=== PATIENT | female | born 1940 | race Caucasian/White ===

== ENCOUNTER 2019-02-13 11:05 | Outpatient (RCR) | payer MEDICARE, SELFPAY | END 2019-02-26 00:01 | LOC: SPT 11:05 | PROVIDERS: Visit Provider Specialist | DX: S42.202D Unspecified fracture of upper end of left humerus, subsequent encounter for fracture with routine healing (principal); X58.XXXD Exposure to other specified factors, subsequent encounter | CPT/HCPCS: 97140; 97161; 97110 ==

== ENCOUNTER → 2019-02-26 | Outpatient (CLI) | payer MEDICARE, SELFPAY | PROVIDERS: Family Provider Family Medicine | DX: Z78.0 Asymptomatic menopausal state (principal); E11.9 Type 2 diabetes mellitus without complications; I10 Essential (primary) hypertension; M81.0 Age-related osteoporosis without current pathological fracture | CPT/HCPCS: 77080 ==

== ENCOUNTER 2019-02-27 06:00 | Outpatient (RCR) | payer MEDICARE, SELFPAY | END 2019-03-29 23:59 | disposition home or self-care (01) | LOC: SPT 06:00 | PROVIDERS: PCP Nurse Practitioner; Visit Provider Specialist | DX: S42.202D Unspecified fracture of upper end of left humerus, subsequent encounter for fracture with routine healing (principal); X58.XXXD Exposure to other specified factors, subsequent encounter | CPT/HCPCS: 97110; 97140 ==

== ENCOUNTER → 2019-03-04 11:59 | Outpatient (BNVA) | payer MEDICARE, SELFPAY | PROVIDERS: Family Provider Family Medicine; PCP Nurse Practitioner; Visit Provider Specialist | DX: S42.212A Unspecified displaced fracture of surgical neck of left humerus, initial encounter for closed fracture (principal); X58.XXXA Exposure to other specified factors, initial encounter | CPT/HCPCS: 73030 ==

== ENCOUNTER → 2020-12-04 09:24 | Outpatient (BNVA) | payer MEDICARE, SELFPAY | PROVIDERS: PCP Nurse Practitioner; Visit Provider Nurse Practitioner Family | DX: Z20.822 Contact with and (suspected) exposure to COVID-19 (principal) | CPT/HCPCS: 87635 ==

== ENCOUNTER → 2020-12-07 11:11 | Outpatient (BNVA) | payer MEDICARE, SELFPAY | PROVIDERS: PCP Nurse Practitioner | DX: Z20.822 Contact with and (suspected) exposure to COVID-19 (principal) | CPT/HCPCS: 87426; 87635 ==

== ENCOUNTER 2020-12-08 13:49 | Outpatient (CLI) | payer MEDICARE, SELFPAY ==
[2020-12-08 14:04] VITALS: BP 143/85; PULSE 66; RESP 17; TEMP 37; O2SAT 97; BMI 35.9
[2020-12-08 14:28] VITALS: BP 138/85; PULSE 64; RESP 18; TEMP 520.2; TEMP 968.3; O2SAT 94
[2020-12-08 15:29] VITALS: BP 152/85; PULSE 65; RESP 15; TEMP 36.9; O2SAT 93
== END 2020-12-08 15:32 | disposition home or self-care (01) ==
LOC: OPS 13:52
PROVIDERS: PCP Family Medicine; Visit Provider Nurse Practitioner
DX: U07.1 COVID-19 (principal)
CPT/HCPCS: 96365

== ENCOUNTER 2020-12-11 12:16 | Emergency (ER) | payer MEDICARE, SELFPAY ==
[2020-12-11 13:13] VITALS: BP 147/85; PULSE 66; RESP 18; TEMP 37.2; O2SAT 97; BMI 35.9
--- NOTE | 2020-12-11 17:09 | ED_ITS ---
HPI - COVID General: Chief Complaint: COVID symptoms Stated Complaint: CONGESTION: COVID +/INFUSION TUES Time Seen by Provider: 12/11/20 16:55 Triage information: No fever, cough or shortness of breath . Exposure to COVID + person last 14 days History of Present Illness: HPI Narrative: 72-year-old female presents emergency room she tested positive on 1010 for Covid. She received antibiotic infusion the following day on December 08. She has several other family members who had also tested positive. She is still having some cough seems to be worse at night she is not had any diarrhea as she is having some myalgias and gen erally not feeling well. No significant anosmia MD complaint: known COVID positive Prior covid testing: yes, results known Prior testing date: 12/07/20 COVID 19 common symptoms: positive fever(s), chills, cough, non-productive cough, fatigue, body aches and headache(s); negative productive cough, dyspnea, loss of sense of smell and/or taste, throat pain, nasal congestion, nausea, vomiting or diarrhea COVID 19 other sytmptoms: negative chest pain or requiring oxygen Onset (ago): day(s) (6) Severity: mild Pertinent comorbid conditions: hypertension and obesity Treatment prior to arrival: acetaminophen and monocloncal antibody COVID Results: SARS-CoV-2 Antigen (Rapid) Positive (Negative) H 12/07/20 11:10 12/07/20 SARS-CoV-2 RNA (RT-PCR) Not detected (NOT DETECTED) 12/04/20 09:24 12/04/20 Nasal/Oral Coronavirus 2019 PCR Detected H 12/07/20 11:11 12/07/20 Review of Systems Const: Reports: fever(s), chills, body aches and fatigue ENMT: Denies: throat pain or nasal congestion Card: Denies: chest pain, edema, dyspnea on exertion or orthopnea Resp: Reports: non-productive cough; Denies: dyspnea or productive cough GI: Denies: nausea, vomiting or diarrhea : Denies: flank pain, difficulty voiding, dysuria, urinary frequency or urinary urgency Skin/Breast: Denies: rash or pruritus Neuro: Reports: headache(s) [facility] ED PFSH: Medical History (Updated 12/11/20 @ 17:15 by Keith Doyle DO) Chronic left shoulder pain Diabetes mellitus Osteoarthritis (arthritis due to wear and tear of joints) Osteoarthritis of knees, bilateral Rotator cuff insufficiency of left shoulder Surgical History History of hip replacement bilateral Hx of total knee replacement Right knee Family History Father Hypertension Mother Cancer Grandmother Cancer Social History Smoking and tobacco status: never smoked Alcohol intake: never Physical Exam Const: COMMON NORMALS: no acute distress GENERAL APPEARANCE: cooperative and comfortable ORIENTATION/CONSCIOUSNESS: Yes awake, Yes oriented to person, Yes oriented to place and Yes oriented to time HENMT: COMMON NORMALS: normocephalic, atraumatic and hearing grossly normal bilaterally HEAD & SCALP: normocephalic and atraumatic Neck/C-Spine: COMMON NORMALS: no JVD Resp: COMMON NORMALS: normal respiratory effort, No retractions, No use of accessory muscles and clear to auscultation bilaterally AUSCULTATION: clear to auscultation bilaterally Cardio: COMMON NORMALS: no JVD, regular rate, regular rhythm and No murmurs present (Cardio) RATE: regular rate RHYTHM: regular rhythm GI: COMMON NORMALS: Soft to palpation and No hepatosplenomegaly present AUSCULTATION: Yes normoactive bowel sounds PALPATION: Yes Soft to palpation, No Tenderness to palpation present (GI), No Guarding due to palpation present (GI) and Yes No hepatosplenomegaly present Extremity: COMMON NORMALS: normal to inspection, capillary refill normal, no clubbing, cyanosis or edema, no calf tenderness and no pedal edema Neuro: SENSORIUM/ORIENTATION: Yes oriented to person, Yes oriented to place and Yes oriented to time Skin: COMMON NORMALS: no rashes or lesions noted GENERAL SKIN EXAM: no rashes or lesions noted Course Vital Signs: Vital signs: Vital Signs Temperature 98.9 F 12/11/20 13:13 Pulse Rate 66 12/11/20 13:13 Respiratory Rate 18 12/11/20 13:13 Blood Pressure 147/85 12/11/20 13:13 Pulse Oximetry 97 12/11/20 13:13 MDM - COVID MDM Narrative: Medical decision making narrative: Exam normal chest x-ray not really indicated she has no adventitious breath sounds. Her oxygen sats are good. Discussed the usual course of Covid not surprising that she is little more symptomatic at night discussed that I suspect she probably will continue to feel ill for at least 3-5 more days if not possibly longer but should slowly improve. Not requiring oxygen at this time no further interventions are recommended follow-up as needed COVID Results: SARS-CoV-2 Antigen (Rapid) Positive (Negative) H 12/07/20 11:10 12/07/20 SARS-CoV-2 RNA (RT-PCR) Not detected (NOT DETECTED) 12/04/20 09:24 12/04/20 Nasal/Oral Coronavirus 2019 PCR Detected H 12/07/20 11:11 12/07/20 Discharge Plan Discharge Patient Disposition: Home Clinical Impression: COVID-19 Condition: Stable Prescriptions: No Action naproxen 500 mg tablet 500 mg PO BID RF: 0 metoprolol tartrate 25 mg tablet 12.5 mg PO BID RF: 0 hydrochlorothiazide 25 mg tablet 25 mg PO QAM RF: 0 lisinopril 40 mg tablet 40 mg PO ONCE RF: 0 fluticasone propionate [Flonase Allergy Relief] 50 mcg/actuation spray, suspension 1 spray INTRANASAL BID RF: 0 pravastatin 40 mg tablet 40 mg PO ONCE RF: 0 coenzyme Q10 100 mg capsule 100 mg PO ONCE RF: 0 aspirin [Adult Low Dose Aspirin] 81 mg tablet,delayed release (DR/EC) 81 mg PO ONCE RF: 0 ascorbate calcium (vitamin C) 500 mg tablet 500 mg PO BID RF: 0 cholecalciferol (vitamin D3) 1,000 unit capsule 1,000 unit PO ONCE RF: 0 acetaminophen [Tylenol Extra Strength] 500 mg tablet 500 mg PO Q4H PRNRF: 0 alendronate 10 mg tablet 10 mg PO DAILY RF: 0 amlodipine 10 mg tablet 10 mg PO DAILY RF: 0 Discharge Orders: Discharge ED (Routine); Ordered 12/11/20 Ordered By: Keith Doyle Referrals: Ganga Camejo MD [Primary Care Provider] - Discharge Diet: Usual diet Discharge Activity: Increase activity as tolerated Patient Instructions: Opioid Safety Coding Level of Care Code ED Entry Driver Operator for Chg Fwd Exam Comprehensive
[2020-12-11 17:31] VITALS: BP 142/74; PULSE 78; RESP 18; O2SAT 97
== END 2020-12-11 17:29 | disposition home or self-care (01) ==
PROVIDERS: Emergency Provider Family Medicine; PCP Family Medicine
DX: U07.1 COVID-19 (principal); I10 Essential (primary) hypertension; E66.9 Obesity, unspecified; Z68.35 Body mass index [BMI] 35.0-35.9, adult; E11.9 Type 2 diabetes mellitus without complications; M17.0 Bilateral primary osteoarthritis of knee; Z79.82 Long term (current) use of aspirin
CPT/HCPCS: 99281

== ENCOUNTER → 2021-08-19 16:29 | Outpatient (BNVA) | payer MEDICARE, SELFPAY | PROVIDERS: PCP Clinical Nurse Specialist Adult Health; Visit Provider Clinical Nurse Specialist Adult Health | DX: I10 Essential (primary) hypertension (principal); E78.5 Hyperlipidemia, unspecified; E11.8 Type 2 diabetes mellitus with unspecified complications | CPT/HCPCS: 80053; 80061; 83036; 85025 ==

== ENCOUNTER → 2021-09-28 11:50 | Outpatient (BNVA) | payer MEDICARE, SELFPAY | PROVIDERS: PCP Clinical Nurse Specialist Adult Health; Visit Provider Clinical Nurse Specialist Adult Health | DX: R30.0 Dysuria (principal); N30.00 Acute cystitis without hematuria; B95.2 Enterococcus as the cause of diseases classified elsewhere | CPT/HCPCS: 81000; 87077; 87086; 87184 ==

== ENCOUNTER 2021-10-05 13:55 | Outpatient (CLI) | payer MEDICARE, SELFPAY ==
--- NOTE | 2021-10-05 14:12 | XR_ITS ---
WS: [id number] DEXA (DUAL ENERGY X-RAY ABSORPTIOMETRY) Bone mineral density was performed using a [employer] machine. HISTORY: OSTEOPOROSIS COMPARISON: 02/26/2019 Lumbar spine BMD (L1-L4): 1.250 g/cm2 T score: 0.6 Z score: 1.6 Left forearm BMD: 0.578 g/cm2. T score: -3.4 Z score: -0.8 Compared to the prior study from 02/26/2019. Lumbar spine bone mineral density has increased by 9.1%. Bilateral hips bone mineral density has decrease by 2.7%. XR/XR DEXA axial skeleton* 65081 IMPRESSION: OSTEOPOROSIS based upon the WHO classification for females. Increased bone mineral density in the lumbar spine is probably due to sclerosis falsely elevating the BMD. Significant decrease in bone mineral density within the wrist since the prior s tudy.
== END 2021-10-05 13:56 | disposition home or self-care (01) ==
LOC: RAD 13:58
PROVIDERS: PCP Clinical Nurse Specialist Adult Health; Visit Provider Clinical Nurse Specialist Adult Health
DX: M81.0 Age-related osteoporosis without current pathological fracture (principal)
CPT/HCPCS: 77080

== ENCOUNTER → 2021-11-15 10:53 | Outpatient (BNVA) | payer MEDICARE, SELFPAY | PROVIDERS: PCP Clinical Nurse Specialist Adult Health; Visit Provider Clinical Nurse Specialist Adult Health | DX: Z00.00 Encounter for general adult medical examination without abnormal findings (principal); E11.9 Type 2 diabetes mellitus without complications; I10 Essential (primary) hypertension | CPT/HCPCS: 80053; 80061; 83036; 85025 ==

== ENCOUNTER → 2021-12-02 16:02 | Outpatient (BNVA) | payer MEDICARE, SELFPAY | PROVIDERS: PCP Clinical Nurse Specialist Adult Health; Visit Provider Nurse Practitioner Family | DX: N39.0 Urinary tract infection, site not specified (principal) | CPT/HCPCS: 81000; 87077; 87086; 87184 ==

== ENCOUNTER → 2022-01-03 11:48 | Outpatient (BNVA) | payer MEDICARE, SELFPAY | PROVIDERS: PCP Clinical Nurse Specialist Adult Health; Visit Provider Clinical Nurse Specialist Adult Health | DX: N39.0 Urinary tract infection, site not specified (principal) | CPT/HCPCS: 81000; 87077; 87086; 87184 ==

== ENCOUNTER → 2022-02-07 12:22 | Outpatient (BNVA) | payer MEDICARE, SELFPAY | PROVIDERS: PCP Clinical Nurse Specialist Adult Health; Visit Provider Clinical Nurse Specialist Adult Health | DX: E11.9 Type 2 diabetes mellitus without complications (principal); E87.1 Hypo-osmolality and hyponatremia | CPT/HCPCS: 80053; 83036 ==

== ENCOUNTER → 2022-05-10 11:29 | Outpatient (BNVA) | payer MEDICARE, SELFPAY | PROVIDERS: PCP Clinical Nurse Specialist Adult Health; Visit Provider Clinical Nurse Specialist Adult Health | DX: N39.0 Urinary tract infection, site not specified (principal); E78.5 Hyperlipidemia, unspecified; E11.9 Type 2 diabetes mellitus without complications; E87.1 Hypo-osmolality and hyponatremia; I10 Essential (primary) hypertension | CPT/HCPCS: 80053; 80061; 81000; 83036; 85025; 87086 ==

== ENCOUNTER → 2022-08-04 11:18 | Outpatient (BNVA) | payer MEDICARE, SELFPAY | PROVIDERS: PCP Clinical Nurse Specialist Adult Health; Visit Provider Clinical Nurse Specialist Adult Health | DX: E11.9 Type 2 diabetes mellitus without complications (principal); M25.562 Pain in left knee; I10 Essential (primary) hypertension; E87.1 Hypo-osmolality and hyponatremia | CPT/HCPCS: 80053; 83036 ==

== ENCOUNTER → 2022-11-01 11:34 | Outpatient (BNVA) | payer MEDICARE, SELFPAY | PROVIDERS: PCP Clinical Nurse Specialist Adult Health; Visit Provider Clinical Nurse Specialist Adult Health | DX: E11.9 Type 2 diabetes mellitus without complications (principal); N30.00 Acute cystitis without hematuria | CPT/HCPCS: 80053; 81000; 81003; 83036; 85025; 87077; 87086; 87184 ==

== ENCOUNTER → 2022-11-10 11:45 | Outpatient (BNVA) | payer MEDICARE, SELFPAY | PROVIDERS: PCP Clinical Nurse Specialist Adult Health; Visit Provider Clinical Nurse Specialist Adult Health | DX: E87.1 Hypo-osmolality and hyponatremia (principal) | CPT/HCPCS: 80048 ==

== ENCOUNTER → 2023-02-10 12:08 | Outpatient (BNVA) | payer MEDICARE, SELFPAY | PROVIDERS: PCP Clinical Nurse Specialist Adult Health; Visit Provider Clinical Nurse Specialist Adult Health | DX: E11.9 Type 2 diabetes mellitus without complications (principal); I10 Essential (primary) hypertension; E87.1 Hypo-osmolality and hyponatremia; J01.40 Acute pansinusitis, unspecified | CPT/HCPCS: 80053; 83036; 85025 ==

== ENCOUNTER → 2023-02-23 12:03 | Outpatient (BNVA) | payer MEDICARE, SELFPAY | PROVIDERS: PCP Clinical Nurse Specialist Adult Health; Visit Provider Clinical Nurse Specialist Adult Health | DX: I10 Essential (primary) hypertension (principal); J22 Unspecified acute lower respiratory infection; E87.1 Hypo-osmolality and hyponatremia | CPT/HCPCS: 80053 ==

== ENCOUNTER → 2023-07-07 12:22 | Outpatient (BNVA) | payer MEDICARE, SELFPAY | PROVIDERS: PCP Clinical Nurse Specialist Adult Health; Visit Provider Clinical Nurse Specialist Adult Health | DX: I10 Essential (primary) hypertension (principal); E11.9 Type 2 diabetes mellitus without complications; E87.1 Hypo-osmolality and hyponatremia | CPT/HCPCS: 80048; 80053; 80061; 83036; 85025 ==

== ENCOUNTER → 2023-10-09 12:01 | Outpatient (BNVA) | payer MEDICARE, SELFPAY | PROVIDERS: PCP Clinical Nurse Specialist Adult Health; Visit Provider Clinical Nurse Specialist Adult Health | DX: I10 Essential (primary) hypertension (principal); E11.9 Type 2 diabetes mellitus without complications; E78.49 Other hyperlipidemia | CPT/HCPCS: 80053; 80061; 83036; 83880; 85025 ==

== ENCOUNTER → 2024-01-15 11:52 | Outpatient (BNVA) | payer MEDICARE, SELFPAY | PROVIDERS: PCP Clinical Nurse Specialist Adult Health; Visit Provider Family Medicine | DX: E53.8 Deficiency of other specified B group vitamins (principal); Z51.81 Encounter for therapeutic drug level monitoring; E11.9 Type 2 diabetes mellitus without complications; E55.9 Vitamin D deficiency, unspecified | CPT/HCPCS: 80053; 82306; 82607; 83036; 83735; 85025 ==

== ENCOUNTER 2024-02-12 10:28 | Outpatient (CLI) | payer MEDICARE, SELFPAY ==
[2024-02-12 10:34] VITALS: BMI 36.2
--- NOTE | 2024-02-12 10:50 | NMCV_ITS ---
NM leland perf SPECT r/s* [id number] Janna Mercado Age: 83 Gender: F : 1940 Exam Date: 02/12/2024 10:50 Ordering Phys: Cayden Mcneil MD Technologist: MARCY Salcedo Exam Location: [facility] Indications: cp STRESS TEST Please see separate stress test report in [facility] for full findings IMAGE PROTOCOL Rest/Stress 1 Lexiscan Day Radiopharmaceutical Dose (mCi) Administration Site Administered by Rest: Tc-99m 10.6 IV Rica De Leon, COMPUTER INFORMATION SYSTEMS PROFESSOR Sestamibi Stress:Tc-99m 33 IV Rica Haley, COMPUTER INFORMATION SYSTEMS PROFESSOR Sestamibi Rest: 12-Feb-2024 60 Discovery 630 Stress: 12-Feb-2024 30 Discovery 630 0.4mg Lexiscan. Supine position only as patient was unable to lay prone. SPECT RESULTS Technical Quality: Good Raw Data Analysis: Normal Image Corrections: No attenuation or motion correction applied Summed Stress Score: 8 Summed Rest Score: 3 Summed Difference Score: 5 PERFUSION FINDINGS Moderate area of minimal to moderately decreased tracer uptake involving the mid inferolateral, mid anterolateral, apical lateral, apical anterior and LV apex. Significant reversibility was noted in these regions at rest. FUNCTIONAL RESULTS (calculated via Gated SPECT) Stress Image LV EF (%): 79 Stress EDV (mL):80 TID: 0.85 Stress ESV (mL):17 FUNCTIONAL FINDINGS: LV wall motion analysis revealing no gross wall motion abnormalities. IMPRESSIONS 1. Myocardial perfusion imaging revealing moderate area of minimal to moderately decreased tracer uptake involving the inferolateral, anterolateral, and apical regions with significant reversibility suggesting myocardial scarring with ischemia predominantly in the distribution of the left circumflex artery with some involvement of the right left anterior descending artery. 2. LV ejection fraction of 79%. 3. LV wall motion analysis revealing no gross wall motion abnormalities. 4. Normal LV volume No similar previous studies are available for comparison Dr Elyse Whitfield MD [facility] (Electronically Signed) Final Date: 12 February 2024 13:39 S
--- NOTE | 2024-02-12 10:50 | ECG_ITS ---
[employer] Test Date: 2024-02-12 Pat Name: Janna Mercado Department: Room: Gender: Female [employer]: : 1940 Requested By: Cayden Ma Order Number: [id number] Brandi MD: Elyse Whitfield M.D. Interpretive Statements Lung unchanged pre/post procedure; Intraprocedure shortess of breath; Symptoms resoled by discharge PROCEDURE: At the baseline, the EKG revealed normal sinus rhythm with normal ST Ts. First-degree AV block. Possible left atrial enlargement. The baseline heart was a 62 bpm with a blood pressue of 146/79 mm of Hg Lexiscan was infused over a period of 20 seconds. A total of 0.4 milligrams of Lexiscan was infused. The stress phase was continued for a total of 5 minutes. Heart rate at the end of the stress phase was 66 bpm with a blood pressure 136/70 mm of Hg. The EKG at the peak infusion revealed no significant changes. Sestamibi was injected 20 seconds after the Lexiscan infusion. Heart rate at the end of the recovery phase was 65 bpm with a blood pressure of 135/71 mm of Hg. CONCLUSION: 1. No significant EKG changes with the LexiScan infusion 2. No LexiScan induced chest pain or cardiac arrhythmia 3. Normal blood pressure and heart rate response 4. Sestamibi/sestamibi perfusion scan pending; see separate report. Electronically Signed On 02-16-2024 12:30:05 ADVERTISING MATERIAL DISTRIBUTOR by Elyse Whitfield M.D. [email or web address]
[2024-02-12] MEDS: regadenoson 0.4 Mg/5 ml Syringe IVP (12:04)
[2024-02-12 12:40] VITALS: BP 136/74; PULSE 88
== END 2024-02-12 10:29 | disposition home or self-care (01) ==
LOC: CDL 10:30
PROVIDERS: PCP Family Medicine; Visit Provider Family Medicine
DX: R07.9 Chest pain, unspecified (principal); R06.02 Shortness of breath; R94.39 Abnormal result of other cardiovascular function study
CPT/HCPCS: 36415; 78452; 93017; 96374; A9500; J2785

== ENCOUNTER → 2024-02-14 13:03 | Outpatient (BNVA) | payer MEDICARE, SELFPAY | PROVIDERS: PCP Family Medicine; Visit Provider Internal Medicine Cardiovascular Disease | DX: I25.119 Atherosclerotic heart disease of native coronary artery with unspecified angina pectoris (principal); I10 Essential (primary) hypertension; E11.9 Type 2 diabetes mellitus without complications; R94.39 Abnormal result of other cardiovascular function study; Z79.84 Long term (current) use of oral hypoglycemic drugs | CPT/HCPCS: 99204 ==

== ENCOUNTER 2024-02-19 13:51 | Observation (INO) | payer MEDICARE, SELFPAY ==
[2024-02-19] VITALS (23 sets, daily range): BP systolic 103–154; BP diastolic 60–95; PULSE 56–71; RESP 14–26; TEMP 36.8; O2SAT 92–95; BMI 36.2; BMI 36.6
--- NOTE | 2024-02-19 09:00 | XACV_ITS ---
Exam Room: 2 Ht: 155 cm Wt: 87 kg BSA: 1.98 m2 Gender: Female : 1940 Any Known Allergies: Other Exam Priority: Routine Procedure(s): Procedure Description: Diagnostic procedure Procedure Description: PCI procedure Procedure Description: Drug Eluting Coronary Stent Procedure Description: PTCA Procedure Description: Miscellaneous Procedure Description: ACT Procedure Description: Coronary Angiography Procedure Description: Pressure Wire Diagnostic Cath Status: Elective Diagnostic Findings * INDICATION: CCS 3/ Worsening angina/ abnormal stress test. * Left Main has no significant disease. * Right Coronary Artery has mild to moderate luminal irregularities. * Mid Left Anterior Descending: severe, serial 80% stenoses, LEW: 3 flow. * Mid Circumflex: mild to moderate 40% stenosis, LEW: 3 flow. * Coronary angiography shows right dominance. PCI Status: Elective Interventional Findings * Procedure detail: We engaged left main artery with XB 3.0 guide catheter. IV heparin was administered to maintain anticoagulation. We first performed IFR of mid left circumflex artery which was nonischemic at 1 (Drift was noted however no change seen on Pd:Pa) 0.014 run-through guidewire was then used to cross the mid LAD stenosis and was put in distal vessel. We predilated the stenosis with 2.5 x 20 mm NC balloon. This was followed by placement of 2.5 x 22 mm resolute [place] drug-eluting stent. We then placed an overlapping stent proximally measuring 2.5 x 30 mm resolute Rohini. We then postdilated the stent with 2.75 x 15 mm NC balloon. At this time final angiogram was performed that showed excellent stent expansion, no residual stenosis and LEW-3 flow. Guidewire and guide catheter were removed. Patient left the [employer] in a stable condition.. * Mid Left Anterior Descendin% stenosis treated with a MDT NC EUPHORA RX 2.18R49VC BALLOON, MDT R ROHINI 2.5X22 ALDO, MDT R ROHINI 2.5X30 ALDO, and MDT NC EUPHORA RX 2.58O60EO BALLOON. 0% residual stenosis, LEW: 3 flow. Conclusions 1. Severe mid LAD stenosis s/p successful revascularization with 2 stents. Moderate mid Lcx senosis with non-ischemic iFR/Pd:Pa. 2. There is significant coronary artery disease with two vessel disease. 3. Mid Left Anterior Descending was treated with a Balloon, Drug Eluting Stent, Drug Eluting Stent, and Balloon. Recommendations * Dual antiplatelet therapy with aspirin and plavix. * High intensity statin therapy. * Outpatient cardiology follow up in 2 weeks. Interventional RX Recommendation: PCI w/o planned CABG Diagnostic RX Recommendation: PCI w/o planned CABG Anticoagulation: Heparin Pressures Phase:Rest AO : 118 / 69 ( 92 ) @ 11:39:00 AM 107 / 56 ( 78 ) @ 12:05:00 PM Clinical Evaluation EBL: 5mL-10mL Procedural Details Procedure Consent Obtained. Pre-Procedure Time Out. Identified patient by full name and date of as verbalized by the patient/guarantor. Does the consent match the physician's order: Yes. Accurate & Complete Informed Consent: Yes. Inpatient/Outpatient History & Physical on Chart: Yes. If H&P is completed, is and addenduem needed: No. Visualize and Verify Site with Patient/Guarantor: N/A. Relevant Radiology Images available: Yes. The risks, benefits, and alternatives of sedation and/or procedure were discussed by physician. The patient agrees to continue. Procedure started. [facility] Clinical Fraility Score: 4: Vulnerable. [employer] Indications: New Onset Angina/Abnormal stress test. Chest Pain Symptom Assessment: Typical Angina Symptoms. Cardiovascular Instability: No. Correct patient, site and procedure confirmed by cath team. PERRLA. Strong, equal hand director of it operations bilaterally. Lungs clear x 5 lobes. IV Site on Arrival: 20 gauge in the right anticubital. IV Fluids: 0.9% NaCl at KVO. 0 mL infused prior to center medical and lab director. Pre Procedural Pulses: bilateral dorsalis pedis was 3+. Pre Procedural Pulses: bilateral posterior tibial was 3+. Pre Procedural Pulses: bilateral radial was 3+. Oxygen started at 2liters/min via nasal canula. right groin was prepped with chloroprep then draped in the usual sterile fashion. right radial was prepped with chloroprep then draped in the usual sterile fashion. Physician notified. Baseline sample Acquired. HR: 68 BPM. Patient's family unavailable. Equipment: 6F - Radial. Cardiac Cath Pack. ACIST Manifold Kit Model BT 2000. Heparinized Saline (2 units/mL), 1000 mL bag. Physician arrived. Physician scrubbed in. Immediate Pre-Procedure Time Out. Correct Patient: Yes; Correct Procedure: Yes; Correct Site: Yes; Correct Patient Position: Yes; Correct Supplies: Yes; Dried Flammable Prep: Yes; Blood Products Available: N/A;. Lidocaine 1% infiltrated to the right radial. Arterial access obtained. unable to advance wire, wire out. hand injection of the right radial artery performed through the sheath. A 5 estonian TIG catheter in over the 260cm stiff angled glidewire. Catheter removed over the glide wire. hand injection of the right radial artery performed through the sheath. Unable to obtain radial access. MD attempting to gain access in the Femoral artery. A TR Band was successful obtaining hemostatsis at the Right Radial artery insertion site. Lidocaine 1% infiltrated to the right groin. Arterial access obtained with micropuncture set. A 5 estonian JL4 catheter in over wire. Multiple views taken of left coronary artery. Catheter removed over the standard wire. A 5 estonian JR4 catheter in over wire. Multiple views taken of right coronary artery. Catheter removed over the standard wire. 6 estonian XB 3.5 guide catheter was inserted over the standard wire. Guide catheter out over the standard wire. 6 estonian XB 3 guide catheter was inserted over the standard wire. Guide catheter out over the standard wire. Sheath upsized to a 6 Fr. 6 estonian XB 3.5 guide catheter was inserted over the standard wire. iFR guidewire was advanced through the guide catheter to lesion in the mid Circ. iFR of the Mid CX = 1.03 with a pullback of 1.05. Runthrough guidewire was advanced through the guide catheter to lesion in the mid LAD. iFR wire out. Inflation number : 1 A MDT NC EUPHORA RX 2.87R92TY BALLOON was prepped and advanced across the Mid LAD , then inflated to 12 DANDY for 0:15 seconds. Inflation number: 2 The MDT NC EUPHORA RX 2.67P41YL BALLOON was reinflated across the Mid LAD, to 12 DANDY for 0:10 seconds. Inflation number: 3 The MDT NC EUPHORA RX 2.00B80BS BALLOON was reinflated across the Mid LAD, to 12 DANDY for 0:12 seconds. Balloon out. [place] 2.5mm x 30mm stent in, unable to cross, removed intact. Guideliner in OTW. Rohini 2.5mm x 30mm stent in, unable to cross, removed intact. Inflation Number : 4 A MDT R ROHINI 2.5X22 ALDO -Lot Number# [id number] was prepped and advanced across the Mid LAD. The stent was deployed at 12 DANDY for 0:17 seconds. Exp. . Stent balloon out over wire. Inflation Number : 5 A MDT R ROHINI 2.5X30 ALDO -Lot Number# [id number] was prepped and advanced across the Mid LAD. The stent was deployed at 16 DANDY for 0:20 seconds. Exp. . Stent balloon out over wire. Inflation number : 6 A MDT NC EUPHORA RX 2.06V16IC BALLOON was prepped and advanced across the Mid LAD , then inflated to 12 DANDY for 0:05 seconds. Inflation number: 7 The MDT NC EUPHORA RX 2.70Q41WV BALLOON was reinflated across the Mid LAD, to 14 DANDY for 0:17 seconds. Inflation number: 8 The MDT NC EUPHORA RX 2.43R63FS BALLOON was reinflated across the Mid LAD, to 18 DANDY for 0:12 seconds. Balloon out. Results checked. ACT drawn. Results out of range HI. WIll redraw. Guideliner out. Wire out. Guide catheter out. Sheath upsized to a 6 Fr. A Right femoral angiogram was performed to determine safe placement of closure device. ACT drawn. Results 224 seconds. Therapeutic limits - pre-heparin administration 90-150 seconds and monitoring heparin during a vascular procedure >[address] Hurtado scrubbed out. A Suture was successful obtaining hemostatsis at the Right Femoral artery insertion site. Sheath(s) sutured into position with 2-0 silk and sterile 4x4's and Op-site applied over the site. No oozing or signs and symptoms of hematoma noted. Arterial sheath flushed and connected to tranducer and pressure bag with heparinized saline. Post Procedure: Pulses reassessed and unchanged. PERRLA. Strong, equal hand director of it operations bilaterally. No VTE prophylaxis required. Medication's Wasted: Lidocaine 1% = 10 mL. Medication's Wasted: Nitro = 49.6 mg. Medication's Wasted: Heparin = 4000 units. Total IV fluids: 200 mL. Post-op diagnosis: S/P pci of the MID LAD with 2 ALDO. Complications: none. Estimated blood loss: 5mL-10mL. Responsiveness - Normal response to verbal stimuli; alert and oriented, PERRLA. Airway - Unaffected, no intervention required; spontaneous ventilation. Circulation: W/N/L, pulses unchanged. Nausea/Vomiting: No. Procedure completed. Patient transferred by bed to CPRU. Vital chart was stopped. Access Site Site: Right Radial artery Sheath Size: 6 Fr Hemostasis Method: TR Band Hemostasis Success: Successful Site: Right Femoral artery Sheath Size: 5 Fr Hemostasis Method: Suture Hemostasis Success: Successful Procedure Medications Start: 11:16 AM Stop: 11:16 AM Medication: Versed Amount: 1 mg Route: I.V. Start: 11:16 AM Stop: 11:16 AM Medication: Fentanyl Amount: 50 mcg Route: I.V. Start: 11:24 AM Stop: 11:24 AM Medication: Nitrogylcerin Amount: 200 mcg Route: I.A. Start: 11: AM Stop: 11: AM Medication: Versed Amount: 1 mg Route: I.V. Start: 11:52 AM Stop: 11:52 AM Medication: Versed Amount: 1 mg Route: I.V. Start: 11:52 AM Stop: :52 AM Medication: Fentanyl Amount: 25 mcg Route: I.V. Start: 11:44 AM Stop: 11:44 AM Medication: Heparin Amount: 7000 units Route: I.V. Start: 11:56 AM Stop: 11:56 AM Medication: Heparin Amount: 1000 units Route: I.V. Start: 12:09 PM Stop: 12:09 PM Medication: Versed Amount: 1 mg Route: I.V. Start: 12:09 PM Stop: 12:09 PM Medication: Fentanyl Amount: 25 mcg Route: I.V. Start: 12:32 PM Stop: 12:32 PM Medication: Nitrogylcerin Amount: 200 mcg Route: I.C. Start: 12:36 PM Stop: 12:36 PM Medication: Plavix Amount: 600 mg Route: P.O. Start: 12:47 PM Stop: 12:47 PM Medication: Heparin Amount: 2000 units Route: I.V. I, the attending physician, have reviewed and verified all procedure medications. Yes, all medications given per verbal order History/Risk Factors Hypertension: Yes Dyslipidemia: Yes Peripheral Arterial Disease (PAD): No Myocardial Infarction (OK): No Obesity: No Renal Disease: No Tobacco Use: Former Prior Interventions PCI: No CABG: No Valve Surgery: No Report Signatures Finalized by Erwin Hurtado MD on 02/25/2024 11:20 AM
[2024-02-19 09:30] LABS: Basophils # 0.1 10^3/uL (0.0-0.1); Basophils % 1.2 %; Eosinophils # 0.4 10^3/uL (0.0-0.8); Eosinophils % 5.9 %; Hematocrit 38.5 % (36-47); Lymphocytes # 1.6 10^3/uL (0.8-4.8); Lymphocytes % 22.1 %; Mean Corpuscular Hemoglobin 29.3 pg (27-33); Mean Corpuscular Volume 88.7 fl (85-98); Mean Platelet Volume 8.6 fL (7.4-10.4); Monocytes # 0.8 10^3/uL (0.2-0.9); Monocytes % 10.9 %; Neutrophils # 4.31 10^3/uL (1.8-7.7); Neutrophils % 59.6 %; Nucleated Red Blood Cells % 0 %; Platelet Count 302 10^3/cmm (157-399); Red Blood Count 4.34 10^6/uL (3.85-5.65); Red Cell Distribution Width 13.2 % (12.1-15.1); White Blood Count 7.24 10^3/uL (3.29-11.43)
[2024-02-19] MEDS: diphenhydrAMINE 50 mg Capsule PO (09:30)
[2024-02-19 09:53] LABS: Anion Gap 15.7 (5-19); Blood Urea Nitrogen 11 mg/dL (8-23); Calcium 10.1 mg/dL (8.5-10.5); Carbon Dioxide 25 mmol/L (22-29); Chloride 101 mmol/L (98-107); Creatinine Clr Calc Pharmacy 55.3008; Glucose 141 mg/dL (65-115); Osmolality Calculated 286 mOsm/kg (285-295); Potassium 4.7 mmol/L (3.5-5.1); Sodium 137 mmol/L (136-145)
--- NOTE | 2024-02-19 11:11 | W.PM.OPSFHP ---
Same Day Surgery H&P Indication for Procedure/HPI DATE OF PROCEDURE: February 19, 2024 CHIEF COMPLAINT/INDICATIONFOR SURGICAL PROCEDURE: CCS class 3 angina/abnormal stress test PREOP DIAGNOSIS: CCS class 3 angina/abnormal stress test PLANNED PROCEDURE: Operation Date: 02/19/24 10:00 Proposed Procedures p Cardiac Catheterization(Left) - Erwin Hurtado M.D Possible percutaneous coronary intervention 83-year-old woman who has been noticing chest pain symptoms that she feels like heartburn and chest pressure. Recent onset and worsening. Stress test was abnormal. Plan for coronary angiogram with possible PCI. Medications/Allergies* Home Medications Medication Instructions Recorded Confirmed Type acetaminophen 500 mg tablet 500 mg PO Q4H PRN Pain 03/04/19 02/16/24 History (Tylenol Extra Strength) aspirin 81 mg tablet,delayed 81 mg PO ONCE 03/04/19 02/16/24 History release (Adult Low Dose Aspirin) fluticasone propionate 50 1 spray intranasal BID PRN nasal 01/15/24 02/16/24 History mcg/actuation nasal congestion spray,suspension (Flonase Allergy Relief) ascorbate calcium (vitamin C) 500 500 mg PO DAILY 02/14/24 02/16/24 History mg tablet cholecalciferol (vitamin D3) 25 2,000 unit PO DAILY 02/14/24 02/16/24 History mcg (1,000 unit) capsule coenzyme Q10 100 mg capsule 100 mg PO DAILY 02/14/24 02/16/24 History vit C 250 mg-vit E 90 mg-zinc 40 1 tab PO BID 02/16/24 02/16/24 History mg-copper 1 [id number] capsule (PreserVision AREDS-2) Allergies/Adverse Reactions Allergy/AdvReac Type Severity Reaction Status Date / Time hydrocodone Allergy Unknown unknown Verified 02/16/24 07:21 metronidazole [From Flagyl] Allergy Unknown unknown Verified 02/16/24 07:21 quinapril [From Accupril] Allergy Unknown unknown Verified 02/16/24 07:21 tolmetin [From Tolectin] Allergy Unknown unknown Verified 02/16/24 07:21 Current Medications: Generic Name Dose Route Start Last Admin Trade Name Freq PRN Reason Stop Dose Admin Sodium Chloride 1,000 mls @ 50 mls/hr 02/19/24 09:00 02/19/24 09:44 Sodium Chloride 0.9% IV 02/20/24 04:59 Not Given .Q20H ONE Pertinent History/Comorbid Conditions* Medical History (Updated 02/13/24 @ 10:18 by Cayden Mcneil MD) COVID-19 Diabetes mellitus diet controlled Hypertension Hyperlipemia Hyponatremia Osteoarthritis (arthritis due to wear and tear of joints) Osteoarthritis of knees, bilateral Chronic left shoulder pain Rotator cuff insufficiency of left shoulder Surgical History (Updated 01/15/24 @ 11:38 by Cayden Mcneil MD) History of oophorectomy Bilateral ovaries removed as well as one tube (possibly right) - Uterus still in place History of appendectomy History of tonsillectomy and adenoidectomy Hx of neck surgery Discectomy C5 History of hip replacement bilateral Hx of total knee replacement Bilateral knee replacement Family History (Updated 03/04/19 @ 12:54 by Meme Zavala RN) Cancer Mother Grandmother Hypertension Father Social History Smoking and tobacco/nicotine status: never used tobacco/nicotine Quit status (tobacco/nicotine): has quit using Former quit date comment: Smokedfor 1 year as a young woman Alcohol intake: never Substance/Drug Use: never Pertinent Exam Findings alert, oriented x 3, clear to auscultation bilaterally and regular rate & rhythm Conscious Sedation Assessment PATIENT ASSESSED PRIOR TO SEDATION, WITH NO CHANGE NOTED: Yes AIRWAY EVAL/ANESTHESIA PLAN: normal airway, ASA III, Local Anesthesia, Risks, benefits & alternatives of sedation and/or procedure discussed and Patient agrees to continue as planned ADDITIONAL INFORMATION: Moderate sedation Recommendations Surgery/Procedure today (Left heart cath with possible percutaneous coronary intervention) Coding Level of Care Code Acute Code for g Fwd
--- NOTE | 2024-02-19 13:07 | P.PCN_ITS ---
Procedure Note: Date of procedure: 02/19/24 Pre-procedure diagnosis: CCS 3/ Worsening angina/ abnormal stress test Post-procedure diagnosis: other (Severe coronary artery disease) Procedure: Left heart cath: Left main artery is patent. Mid left circumflex artery had mild to moderate 30 to 40% stenosis. iFR was negative. Mid LAD had serial severe stenosis. Successful revascularization with stents x 2. Aspirin and Plavix for at least 1 year. High intensity statin therapy. Performing Provider: Erwin Hurtado Estimated blood loss (mL): 15 Complications: None Condition: stable Disposition: floor Coding Level of Care Code Acute Code for [facility] Fwchris
[2024-02-19] MEDS: sodium chloride 0.9% 1,000 ML 50 ML IV (14:20)
[2024-02-19 16:58] LABS: Partial Thromboplastin Time 79.2 SECONDS (23.9-36.7)
[2024-02-19] MEDS: metoprolol tartrate 25 mg Tablet PO (17:10)
--- NOTE | 2024-02-19 18:41 | PC.NURSE ---
At 1830 Dr. Hurtado came into the room to close the cath site with a mynx device. He held pressure for 15 minutes and no hematoma formation occurred. Patient is stable.
[2024-02-19] MEDS: atorvastatin 40 mg Tablet PO (20:14)
[2024-02-19] MEDS: acetaminophen 325 mg Tablet 650 MG PO (20:14)
[2024-02-20] VITALS (14 sets, daily range): BP systolic 117–148; BP diastolic 63–82; PULSE 64–92; RESP 15–27; TEMP 36.9; O2SAT 91–95
[2024-02-20] MEDS: acetaminophen 325 mg Tablet 650 MG PO (01:53)
--- NOTE | 2024-02-20 02:01 | PC.NURSE ---
1 Void: Incontinence episode, unable to measure, 1 brief soaked.
[2024-02-20 03:49] LABS: Basophils # 0.1 10^3/uL (0.0-0.1); Basophils % 0.8 %; Eosinophils # 0.4 10^3/uL (0.0-0.8); Eosinophils % 5.2 %; Hematocrit 36.1 % (36-47); Lymphocytes # 1.4 10^3/uL (0.8-4.8); Lymphocytes % 18.9 %; Mean Corpuscular HGB Conc 32.4 g/dL (30-55); Mean Corpuscular Volume 89.4 fl (85-98); Mean Platelet Volume 9.1 fL (7.4-10.4); Monocytes # 0.8 10^3/uL (0.2-0.9); Monocytes % 10.4 %; Neutrophils # 4.82 10^3/uL (1.8-7.7); Neutrophils % 64.4 %; Nucleated Red Blood Cells % 0 %; Platelet Count 292 10^3/cmm (157-399); Red Blood Count 4.04 10^6/uL (3.85-5.65); Red Cell Distribution Width 13.2 % (12.1-15.1); White Blood Count 7.48 10^3/uL (3.29-11.43)
[2024-02-20 04:10] LABS: Blood Urea Nitrogen 12 mg/dL (8-23); Calcium 9.4 mg/dL (8.5-10.5); Carbon Dioxide 23 mmol/L (22-29); Chloride 100 mmol/L (98-107); Creatinine Clr Calc Pharmacy 55.6177; Glucose 112 mg/dL (65-115); Osmolality Calculated 283 mOsm/kg (285-295); Sodium 136 mmol/L (136-145)
--- NOTE | 2024-02-20 06:12 | PC.NURSE ---
1 Void: Incontinence episode, unable to accurately measure urine output.
--- NOTE | 2024-02-20 08:44 | P.DS_ITS ---
Discharge Providers Date of Admission: 02/19/24 13:51 Date of Discharge: February 20, 2024 Attending Provider at Admission: Erwin Hurtado M.D Attending Provider at Discharge: Erwin Hurtado M.D Primary Care Provider: Cayden Mcneil MD Reason for Visit Reason for Visit: R94.39 Brief History: 83-year-old woman who has been noticing chest pain symptoms that she feels like heartburn and chest pressure. Recent onset and worsening. Stress test was abnormal. Plan for coronary angiogram with possible PCI Hospital Course Hospital Course Patient had PCI of severe mid LAD stenosis with 2 stents. Mid LCx was non ischemic on iFR. Patient was observed overnight and stayed stable. She was discharged home in stable condition on dual endplate therapy with aspirin and Plavix Physical Exam Narrative: GENERAL: Patient is alert, awake and oriented x3. [] NECK: No jugular vein distension. [] HEENT: No cyanosis. No icterus. No pallor. [] HEART: Regular S1 and S2. No murmur, rub or gallop. [] LUNGS: Clear to auscultate bilaterally. [] CENTRAL NERVOUS SYSTEM: Grossly nonfocal. [] EXTREMITIES: Lower extremities with 1+ edema bilaterally. Discharge Data Studies Completed and Pending Pending at discharge Category Date Time Status [employer] request for service Routine Exams 02/19/24 09:00 Taken Laboratory Results WBC 7.48 10^3/uL (3.29-11.43) 02/20/24 02:49 RBC 4.04 10^6/uL (3.85-5.65) 02/20/24 02:49 Hgb 11.70 g/dL (11.27-16.99) 02/20/24 02:49 Hct 36.1 % (36-47) 02/20/24 02:49 MCV 89.4 fl (85-98) 02/20/24 02:49 MCH 29.0 pg (27-33) 02/20/24 02:49 MCHC 32.4 g/dL (30-55) 02/20/24 02:49 RDW 13.2 % (12.1-15.1) 02/20/24 02:49 Plt Count 292 10^3/cmm (157-399) 02/20/24 02:49 MPV 9.1 fL (7.4-10.4) 02/20/24 02:49 Neut % (Auto) 64.4 % 02/20/24 02:49 Lymph % (Auto) 18.9 % 02/20/24 02:49 [place] % (Auto) 10.4 % 02/20/24 02:49 Eos % (Auto) 5.2 % 02/20/24 02:49 Baso % (Auto) 0.8 % 02/20/24 02:49 Neut # (Auto) 4.82 10^3/uL (1.8-7.7) 02/20/24 02:49 Lymph # (Auto) 1.4 10^3/uL (0.8-4.8) 02/20/24 02:49 [place] # (Auto) 0.8 10^3/uL (0.2-0.9) 02/20/24 02:49 Eos # (Auto) 0.4 10^3/uL (0.0-0.8) 02/20/24 02:49 Baso # (Auto) 0.1 10^3/uL (0.0-0.1) 02/20/24 02:49 Nucleated RBC % (auto) 0 % 02/20/24 02:49 Nucleated RBCs # 0.0 /100WBC 02/20/24 02:49 APTT 79.2 SECONDS (23.9-36.7) H 02/19/24 16:28 Sodium 136 mmol/L (136-145) 02/20/24 02:49 Potassium 4.0 mmol/L (3.5-5.1) 02/20/24 02:49 Chloride 100 mmol/L (98-107) 02/20/24 02:49 Carbon Dioxide 23 mmol/L (22-29) 02/20/24 02:49 Anion Gap 17.0 (5-19) 02/20/24 02:49 BUN 12 mg/dL (8-23) 02/20/24 02:49 Creatinine 0.5 mg/dL (0.5-0.9) 02/20/24 02:49 GFR Calculation Not Reportable 02/20/24 02:49 Glucose 112 mg/dL (65-115) 02/20/24 02:49 Calculated Osmolality 283 mOsm/kg (285-295) L 12/24/24 02:49 Calcium 9.4 mg/dL (8.5-10.5) 02/20/24 02:49 Vitals Last Vital Signs Temp 98.5 F 02/20/24 06:20 Pulse 66 02/20/24 06:00 Resp 22 H 02/20/24 06:00 BP 117/63 02/20/24 06:00 Pulse Ox 94 02/20/24 06:00 O2 Del Method Room Air 02/20/24 06:00 Discharge Plan Discharge Patient Disposition: Home Condition: Stable Prescriptions: New clopidogrel 75 mg Tablet 75 mg PO DAILY Qty: 90 3RF Continued aspirin [Adult Low Dose Aspirin] 81 mg tablet,delayed release (DR/EC) 81 mg PO ONCE acetaminophen [Tylenol Extra Strength] 500 mg tablet 500 mg PO Q4H PRN (Reason: Pain) fluticasone propionate [Flonase Allergy Relief] 50 mcg/actuation spray,suspension 1 spray INTRANASAL BID PRN (Reason: nasal congestion) ascorbate calcium (vitamin C) 500 mg tablet 500 mg PO DAILY cholecalciferol (vitamin D3) 25 mcg (1,000 unit) capsule 2,000 unit PO DAILY coenzyme Q10 100 mg capsule 100 mg PO DAILY furosemide 20 mg tablet 20 mg PO DAILY Qty: 90 3RF spironolactone 25 mg tablet 25 mg PO DAILY Qty: 90 1RF isosorbide mononitrate 30 mg tablet extended release 24 hr 30 mg PO DAILY Qty: 90 3RF nitroglycerin 0.4 mg tablet, sublingual 0.4 mg sublingual Q5M PRN (Reason: chest pain) Qty: 20 3RF Rx Instructions: do not exceed 3 doses per episode naproxen 500 mg tablet 500 mg PO DAILY Qty: 90 3RF amlodipine 10 mg tablet 10 mg PO DAILY Qty: 90 3RF alendronate 10 mg tablet 10 mg PO .once daily 90 Days Qty: 90 3RF pravastatin 80 mg tablet 80 mg PO DAILY Qty: 90 3RF metoprolol tartrate 25 mg tablet 25 mg PO BID 90 Days Qty: 180 3RF PreserVision AREDS-2 250-90-40-1 mg Capsule 1 tab PO BID Held metformin 500 mg tablet 500 mg PO BID 90 Days Qty: 180 3RF Hold Instructions: Resume on 02/22/24. No Action (DME) Accu-Chek Eve Plus test strp Strip See Rx Instructions .Route Qty: 100 6RF Rx Instructions: As directed Discharge Orders: Discharge Order (Routine); Ordered 02/20/24 Ordered By: Erwin Hurtado Referrals: Theresa Rg FNP [Nurse Practitioner] - 03/05/24 1:45 pm (APPOINTMENT WITH [facility] [phone]) Discharge Diet: Cardiac and Diabetic Discharge Activity: Increase activity as tolerated Patient Instructions: Clopidogrel (By mouth) (Plavix), Chest Pain (GEN), Coronary Angioplasty (DC), Opioid Safety Discharge Attestations Time Spent in Discharge Care*: less than 30 min Quality Metrics Clinical Quality Measures [ No reported AMI, CVA or VTE this stay] Coding Level of Care Code Acute Code for [facility]
[2024-02-20] MEDS: naproxen 500 mg Tablet PO (09:24)
[2024-02-20] MEDS: cholecalciferol (vitamin D3) 1,000 unit Tablet 2000 UNIT PO (09:24)
[2024-02-20] MEDS: isosorbide mononitrate ER 30 mg Tablet PO (09:24)
[2024-02-20] MEDS: amlodipine 10 mg Tablet PO (09:25)
[2024-02-20] MEDS: spironolactone 25 mg Tablet PO (09:25)
[2024-02-20] MEDS: metoprolol tartrate 25 mg Tablet PO (09:25)
[2024-02-20] MEDS: clopidogrel 75 mg Tablet PO (09:25)
[2024-02-20] MEDS: ascorbic acid 500 mg Tablet PO (09:25)
--- NOTE | 2024-02-20 10:48 | PC.NURSE ---
Patient was given all discharge instructions and prescriptions. All new information was reviewed with the patient and all questions were answered. IV was taken out. Patient was stable during discharge.
== END 2024-02-20 10:40 | disposition home or self-care (01) ==
LOC: ICU 02-20 03:10
PROVIDERS: Nurse Practitioner Family; Admitting Provider Internal Medicine; PCP Family Medicine; Visit Provider Internal Medicine
DX: I25.10 Atherosclerotic heart disease of native coronary artery without angina pectoris (principal); Z79.82 Long term (current) use of aspirin; Z86.16 Personal history of COVID-19; E11.9 Type 2 diabetes mellitus without complications; I10 Essential (primary) hypertension; M17.0 Bilateral primary osteoarthritis of knee; Z87.891 Personal history of nicotine dependence; E78.5 Hyperlipidemia, unspecified; F17.200 Nicotine dependence, unspecified, uncomplicated; Z95.5 Presence of coronary angioplasty implant and graft
CPT/HCPCS: 36415; 80048; 85025; 85347; 85730; 93454; 93571; 96365; 96374; 99152; 99153; C1725; C1769; C1874; C1887; C1894; C9600; G0378; J1644; J2250; J3010; J3490; J7030; Q0163; Q9967

== ENCOUNTER → 2024-03-12 14:34 | Outpatient (BNVA) | payer MEDICARE, SELFPAY | PROVIDERS: PCP Family Medicine; Visit Provider Internal Medicine Cardiovascular Disease | DX: I10 Essential (primary) hypertension (principal); R94.39 Abnormal result of other cardiovascular function study; K21.9 Gastro-esophageal reflux disease without esophagitis | CPT/HCPCS: 99214 ==

== ENCOUNTER → 2024-04-29 10:46 | Outpatient (BNVA) | payer MEDICARE, SELFPAY | PROVIDERS: PCP Family Medicine; Visit Provider Family Medicine | DX: Z51.81 Encounter for therapeutic drug level monitoring (principal); E11.9 Type 2 diabetes mellitus without complications; Z13.6 Encounter for screening for cardiovascular disorders; E55.9 Vitamin D deficiency, unspecified | CPT/HCPCS: 80053; 80061; 82306; 83036; 85025 ==

== ENCOUNTER → 2024-08-12 10:33 | Outpatient (BNVA) | payer MEDICARE, SELFPAY | PROVIDERS: PCP Family Medicine; Visit Provider Family Medicine | DX: Z51.81 Encounter for therapeutic drug level monitoring (principal); E11.9 Type 2 diabetes mellitus without complications; N39.0 Urinary tract infection, site not specified | CPT/HCPCS: 80053; 81000; 82607; 83036; 85025; 87077; 87086; 87184 ==

== ENCOUNTER → 2024-08-26 13:07 | Outpatient (BNVA) | payer MEDICARE, SELFPAY | PROVIDERS: PCP Family Medicine; Visit Provider Podiatrist Foot & Ankle Surgery | DX: E11.42 Type 2 diabetes mellitus with diabetic polyneuropathy (principal); L60.3 Nail dystrophy; I73.9 Peripheral vascular disease, unspecified; Z79.84 Long term (current) use of oral hypoglycemic drugs | CPT/HCPCS: 11721; 99203 ==

== ENCOUNTER → 2024-11-12 14:28 | Outpatient (BNVA) | payer MEDICARE, SELFPAY | PROVIDERS: PCP Family Medicine; Visit Provider Family Medicine | DX: Z51.81 Encounter for therapeutic drug level monitoring (principal); E11.9 Type 2 diabetes mellitus without complications; Z13.6 Encounter for screening for cardiovascular disorders | CPT/HCPCS: 80053; 80061; 83036; 85025 ==

== ENCOUNTER → 2024-11-26 10:37 | Outpatient (BNVA) | payer MEDICARE, SELFPAY | PROVIDERS: PCP Family Medicine; Visit Provider Podiatrist Foot & Ankle Surgery | DX: E11.42 Type 2 diabetes mellitus with diabetic polyneuropathy (principal); L60.3 Nail dystrophy; E11.8 Type 2 diabetes mellitus with unspecified complications; I73.9 Peripheral vascular disease, unspecified; Z79.84 Long term (current) use of oral hypoglycemic drugs | CPT/HCPCS: 11721 ==

== ENCOUNTER → 2025-02-05 13:06 | Outpatient (BNVA) | payer MEDICARE, SELFPAY | PROVIDERS: PCP Family Medicine; Visit Provider Internal Medicine Cardiovascular Disease | DX: I25.10 Atherosclerotic heart disease of native coronary artery without angina pectoris (principal); I10 Essential (primary) hypertension; E78.5 Hyperlipidemia, unspecified | CPT/HCPCS: 99214 ==

== ENCOUNTER → 2025-02-11 12:54 | Outpatient (BNVA) | payer MEDICARE, SELFPAY | PROVIDERS: PCP Family Medicine; Visit Provider Family Medicine | DX: Z51.81 Encounter for therapeutic drug level monitoring (principal); E11.9 Type 2 diabetes mellitus without complications | CPT/HCPCS: 80053; 83036 ==